=== PATIENT | female | born 1955 | race Caucasian/White ===

== ENCOUNTER 2019-09-25 07:14 | Emergency (ER) | payer BC, OTHER ==
--- OUTSIDE RECORDS SUMMARY | 2019-09-25 07:22 | XMS REPORT | Continuity of Care Document ---
:1955 External Reference #:[id number] Author Name Fahad Mitchell MD Address [address] [place] [id number] Problems Active Problems Provider Date Allergic rhinitis Fahad Mitchell MD Onset: 02/14/2007 Otosclerosis Fahad Mitchell MD Onset: 02/14/2007 Gynecologic examination Fahad Mitchell MD Onset: 12/13/2009 Osteopenia Fahad Mitchell MD Onset: 11/11/2015 Note: DEXA 3-16 Social History Type Date Description Comments Sex Unknown Tobacco Use Start: Unknown Never Smoked Cigarettes ETOH Use consumes 1-2 beers per CUT DOWN TO 1 day /DAY Tobacco Use Start: Unknown Patient has never smoked Exercise Type/Frequency Exercises daily yoga, weights, walking. Allergies, Adverse Reactions, Alerts Active Allergies Reaction Severity Comments Date Pen VK Hives 11/24/2006 Amoxicillin Hives? 11/24/2006 PCN 02/14/2007 Bactrim MOTTLED ICHEY RASH Mild 08/23/2015 Sulfa Drugs 11/13/2015 Medications Active Medications SIG Qnty Indications Ordering Provider Date Losartan Potassium 1 by mouth 30tabs Fahad Mitchell, 08/10/2019 25mg every day Tablets Vitamin D3 1 po qd Fahad Mitchell, 10/09/2009 2000Unit Capsules Medications Administered in Office Medication SIG Qnty Indications Ordering Provider Date Rocephin (Ceftriaxone) 2 Grams Infusion, Schedule 05/26/2018 Injection Rocephin (Ceftriaxone) 1 Gram Fahad Mitchell MD 05/25/2018 Injection Immunizations CPT Code Status Date Vaccine Lot # [id number] Given 05/25/2018 Tdap (Adacel) Ages 7 And Above Only [id number] Given 09/18/2012 Tdap (Adacel) Ages 7 And Above Only [id number] Given 01/27/2007 Tetanus And Diptheria Toxoid 7 Years And Older [id number] Preserv Free 14566 Given 06/28/2003 Afluria Or Fluvirin Flu Vac Intramuscular [id number] Refused 08/10/2019 Influenza Vac, Quadrivalent, Split, 0.25mL, Im Use Vital Signs Date Vital Result Comment 08/10/2019 2:01pm Body Temperature 98.1 F Weight 163.00 lb Heart Rate 108 /min BP Systolic 128 mmHg BP Diastolic 88 mmHg 03/23/2019 8:37am Body Temperature 97.2 F Weight 165.00 lb Heart Rate 96 /min BP Systolic 136 mmHg BP Diastolic 88 mmHg BP Systolic Recheck 145 mmHg pts machine BP Diastolic Recheck 90 mmHg pts machine Results Test Acquired Date Facility Test Result H/L Range Note Basic (BMP) 08/10/2019 [facility] Sodium 141 mmol/L 135-146 1 Potassium 4.0 mmol/L 3.5-5.2 Chloride# 102 mmol/L 97-110 2 Carbon Dioxide 27 mmol/L 24-34 Glucose 104 mg/dL 70-105 BUN 11 mg/dL 6-26 Creatinine 0.7 mg/dL 0.5-1.4 Calcium 9.6 mg/dL 8.5-10.5 3 Female Egfr 93 >60 4 Male Egfr 102 >60 5 Anion Gap 12 mmol/L 5-15 6 Lipid Treatment 03/16/2019 [facility] Cholesterol 228 mg/dL High 50-199 Triglycerides 72 mg/dL 30-200 HDL 82 mg/dL 35-85 7 Chol/ HDL Ratio 2.8 ratio Low 3.7-5.6 VLDL 14 mg/dL 2-29 LDL (Calc) 132 mg/dL High 20-99 8 Alt 21 U/L 3-42 Ast 21 U/L 8-42 Basic (BMP) 03/16/2019 [facility] Sodium 140 mmol/L 135-146 9 Potassium 4.1 mmol/L 3.5-5.2 Chloride# 103 mmol/L 97-110 10 Carbon Dioxide 30 mmol/L 24-34 Glucose 80 mg/dL 70-105 BUN 8 mg/dL 6-26 Creatinine 0.6 mg/dL 0.5-1.4 Calcium 9.3 mg/dL 8.5-10.5 11 Female Egfr 95 >60 12 Male Egfr 104 >60 13 Anion Gap 7 mmol/L 5- 14 1 Updated reference range on new analyzer 2 Updated reference range on new analyzer 3 Updated reference range 01-06-2019 4 Concerning GFR Guidelines for Americans: Normal function or mild renal disease, if clinically at risk: >/= 60 mL/min Moderately decreased: 30-59 Severely decreased: 15-29 Renal failure: <15 There is reduced accuracy above 60ml/min/1.73 m squared, but the numeric value may be clinically useful in the near 60 range 5 Concerning GFR Guidelines: Normal function or mild renal disease, if clinically at risk: >/= 60 mL/min Moderately decreased: 30-59 Severely decreased: 15-29 Renal failure: <15 There is reduced accuracy above 60ml/min/1.73 m squared, but the numeric value may be clinically useful in the near 60 range Glomerular Filtration Rate (GFR) is estimated based on the CKD-EPI equation, which assumes a steady state for creatinine as recommended by the National Kidney Disease Education Program in conjunction with the National Institutes of Health and the National Kidney Foundation. Clinical conditions in which it may be necessary to measure GFR by using clearance methods include extremes of age and body size, severe malnutrition or obesity, diseases of skeletal muscle, paraplegia or quadriplegia, vegetarian diet, rapidly changing kidney function, and calculation of the dose of potentially toxic drugs that are excreted by the kidneys. 6 Updated Reference Range 7 Per NCEP ATP III Guidelines: Results lower than 40 mg/dL are suggestive of increased risk for coronary artery disease. Results > or = to 60 mg/dL are considered a negative risk factor. 8 Per NCEP ATP III Guidelines: Normal Population <130 Patients with medical conditions: CHD/DM Optimal: <100 Borderline high: 130-159 High: 160-189 Very high: >189 9 Updated reference range on new analyzer 10 Updated reference range on new analyzer 11 Updated reference range 01-06-2019 12 Concerning GFR Guidelines for Americans: Normal function or mild renal disease, if clinically at risk: >/= 60 mL/min Moderately decreased: 30-59 Severely decreased: 15-29 Renal failure: <15 There is reduced accuracy above 60ml/min/1.73 m squared, but the numeric value may be clinically useful in the near 60 range 13 Concerning GFR Guidelines: Normal function or mild renal disease, if clinically at risk: >/= 60 mL/min Moderately decreased: 30-59 Severely decreased: 15-29 Renal failure: <15 There is reduced accuracy above 60ml/min/1.73 m squared, but the numeric value may be clinically useful in the near 60 range Glomerular Filtration Rate (GFR) is estimated based on the CKD-EPI equation, which assumes a steady state for creatinine as recommended by the National Kidney Disease Education Program in conjunction with the National Institutes of Health and the National Kidney Foundation. Clinical conditions in which it may be necessary to measure GFR by using clearance methods include extremes of age and body size, severe malnutrition or obesity, diseases of skeletal muscle, paraplegia or quadriplegia, vegetarian diet, rapidly changing kidney function, and calculation of the dose of potentially toxic drugs that are excreted by the kidneys. 14 Updated Reference Range Procedures Date Code Description Status 04/15/2019 [id number] Mammogram Completed 04/14/2018 [id number] Mammogram Completed 10/23/2017 [id number] Colonoscopy Completed 04/09/2017 [id number] Mammogram Completed 04/04/2016 [id number] Colonoscopy Completed 11/21/2011 [id number] Mammogram Completed Medical Devices Description No Information Available Encounters Type Date Location Provider Dx Diagnosis Office Visit 03/23/[address], R03.0 Elevated 8:45a MD blood-pressure reading, w/o diagnosis of htn E78.00 Pure hypercholesterolemia, unspecified Z82.49 Family hx of ischem heart dis and oth dis of the circ sys J30.9 Allergic rhinitis, unspecified Assessments Date Code Description Provider 08/10/2019 R03.0 Elevated blood-pressure reading, without Fahad Mitchell MD diagnosis of hypert 08/10/2019 E78.00 Pure hypercholesterolemia, unspecified Fahad Mitchell MD 08/10/2019 R03.0 Elevated blood-pressure reading, w/o [facility] diagnosis of htn 03/23/2019 R03.0 Elevated blood-pressure reading, without Fahad Mitchell MD diagnosis of hypert 03/23/2019 E78.00 Pure hypercholesterolemia, unspecified Fahad Mitchell MD 03/23/2019 Z82.49 Family history of ischemic heart disease and Fahad Mitchell MD other diseases 03/23/2019 J30.9 Allergic rhinitis, unspecified Fahad Mitchell MD 03/16/2019 E78.00 Pure hypercholesterolemia, unspecified Fahad Mitchell MD 03/16/2019 E78.00 Pure hypercholesterolemia, unspecified Nurse's Schedule Loc 7 03/16/2019 E78.00 Pure hypercholesterolemia, unspecified [facility] Plan of Treatment Future Appointment(s):09/24/2019 10:00 am - Fahad [facility] MD at [facility]11/02/2019 9:30 am - Gloria Kessler M.D. at [id number]/03/2019 - Fahad Mitchell, MDR03.0 Elevated blood-pressure reading, without diagnosis of ggaszaB77.00 Pure hypercholesterolemia, unspecifiedAllNew Medication:Losartan Potassium 25 mg - 1 by mouth every day Functional Status Description No Information Available Mental Status Description No Information Available Referrals Description No Information Available
[2019-09-25 07:31] VITALS: BP 147/89
--- NOTE | 2019-09-25 07:43 | UC ---
Throat Pain/Nasal Kenny HPI - HPI Summary HPI Summary: sore throat x 2 days pain is 6 out of 10 , worse with swallowing , better with Tylenol having a cough for the past 4 days , cough is dry , worse with deep breathing, exertion , + nasal congestion , pnd no fever, no chills, no body aches - History of Current Complaint Chief Complaint: UCRespiratory Stated Complaint: ST,CONGESTION Time Seen by Provider: 09/25/19 07:29 Hx Obtained From: Patient Onset/Duration: Gradual Onset, Lasting Days - 2, Still Present Severity: Moderate Pain Intensity: 7 Cough: Nonproductive Associated Signs & Symptoms: Positive: Nasal Discharge. Negative: Wheezing, Sinus Discomfort, Fever, Vomiting, Rash - Allergies/Home Medications Allergies/Adverse Reactions: Allergies Allergy/AdvReac Type Severity Reaction Status Date / Time MS Penicillins [Penicillins] Allergy Severe Hives Verified 09/25/19 07:31 MS Sulfa Antibiotics Allergy Rash And Verified 09/25/19 07:31 [Sulfa Antibiotics] Itching Home Medications: Home Medications Losartan TAB* [Cozaar TAB*] 25 mg PO DAILY 09/25/19 [History Confirmed 09/25/19] PMH/Surg Hx/FS Hx/Imm Hx Cardiovascular History: Hypertension - Surgical History Surgical History: Yes Surgery Procedure, Year, and Place: appy 1974, tubal, otoscerosis- 89, D&C 2011 - Family History Known Family History: Positive: Hypertension - Social History Alcohol Use: Occasionally Substance Use Type: None Smoking Status (MU): Never Smoked Tobacco - Immunization History Most Recent Tetanus Shot: unsure Review of Systems All Other Systems Reviewed And Are Negative: Yes Constitutional: Positive: Negative Skin: Positive: Negative Eyes: Positive: Negative ENT: Positive: Sore Throat, Nasal Discharge Respiratory: Positive: Cough Is Patient Immunocompromised?: No Physical Exam Triage Information Reviewed: Yes Appearance: Well-Appearing, No Pain Distress, Well-Nourished Vital Signs: Initial Vital Signs Temp 98.2 F 09/25/19 07:25 Pulse 85 09/25/19 07:25 Resp 18 09/25/19 07:25 BP 147/89 09/25/19 07:25 Pulse Ox 98 09/25/19 07:25 Vital Signs Reviewed: Yes Eye Exam: Normal ENT: Positive: Normal ENT inspection, Hearing grossly normal, Pharyngeal erythema, Nasal congestion Neck exam: Normal Neck: Positive: Supple, Nontender, No Lymphadenopathy Respiratory Exam: Normal Respiratory: Positive: Chest non-tender, Lungs clear, Normal breath sounds, No respiratory distress Cardiovascular: Positive: RRR, No Murmur, Pulses Normal Throat Pain/Nasal Course/Dx - Course Course Of Treatment: HTN : cont with current meds follow up with your pcp - Differential Dx/Diagnosis Provider Diagnosis: Pharyngitis, Hypertension Discharge ED - Sign-Out/Discharge Documenting (check all that apply): Patient Departure All imaging exams completed and their final reports reviewed: No Studies - Discharge Plan Condition: Stable Disposition: HOME Patient Education Materials: Pharyngitis (ED) Referrals: Fahad Mitchell MD [Primary Care Provider] - If Needed Additional Instructions: viral pharyngitis no need for antibiotics cont. with rest, fluid, take Tylenol as needed for pain follow up as needed - Billing Disposition and Condition Condition: STABLE Disposition: Home
== END 2019-09-25 07:44 | disposition home or self-care (01) ==
LOC: UCCORT 07:14
DX: J02.9 Acute pharyngitis, unspecified (principal); R09.81 Nasal congestion; I10 Essential (primary) hypertension; Z88.0 Allergy status to penicillin; Z88.2 Allergy status to sulfonamides
CPT/HCPCS: 99201; G0463